=== PATIENT | male | born 1945 | race Caucasian/White ===

== ENCOUNTER 2025-01-27 11:40 | Emergency (ER) | payer OTHER ==
[~2025-01-27] VITALS: Ht 177.8 cm; Wt 80.0 kg
[2025-01-27 11:44] VITALS: O2SAT 99
[2025-01-27 12:16] LABS: BASOPHILS % 0.4 % (0.0-2.0); EOSINOPHILS % 0.0 % (0.0-5.0); HEMATOCRIT. 40.4 % (42.0-52.0); HEMOGLOBIN. 13.7 g/dL (14.0-18.0); LYMPHOCYTES % 14.4 % (20.0-50.0); MEAN PLATELET VOLUME 8.1 fl (7.4-10.4); MONOCYTES % 7.9 % (2.0-8.0); NEUTROPHILS % 77.3 % (40.0-76.0); PLATELET 173 x1000/uL (130-400); RED BLOOD CELL COUNT 4.27 mill/uL (4.7-6.1); RED CELL DISTRIBUTION WIDTH 13.7 % (11.6-14.6)
[2025-01-27 12:36] LABS: CREATININE 1.8 mg/dL (0.6-1.3); UREA NITROGEN BLOOD 23 mg/dL (9-23)
[2025-01-27 12:42] LABS: TROPONIN I HIGH SENSITIVITY 65 ng/L (3.0-53)
[2025-01-27] MEDS: SODIUM CHLORIDE 0.9% 1,000 ML IV ONE (13:03)
[2025-01-27] MEDS ORDERED: IPRATROPIUM/ALBUTEROL 0.5-3(2.5)MG/3ML NEB HHN PRN (14:30)
[2025-01-27] MEDS ORDERED: DOCUSATE SODIUM 100MG CAPSULE PO PRN (14:30)
[2025-01-27] MEDS ORDERED: ACETAMINOPHEN 325MG TABLET PO PRN ×2 (14:30)
[2025-01-27] MEDS ORDERED: CLONIDINE 0.1MG TABLET PO PRN (14:30)
[2025-01-27] MEDS ORDERED: ONDANSETRON HCL 4MG/2ML INJ IV PRN (14:30)
[2025-01-27 15:00] VITALS: BP 111/48; PULSE 69; RESP 10; TEMP 36.5; O2SAT 100
== END 2025-01-27 17:31 | disposition left against medical advice (07) ==
LOC: ER 11:40 → EDBEDREQ 14:08 → EDBEDREQTM 14:08 → CANBEDREQ 17:29 → ER 17:31
DX: I21.4 Non-ST elevation (NSTEMI) myocardial infarction (principal); Z86.73 Personal history of transient ischemic attack (TIA), and cerebral infarction without residual deficits; Z88.1 Allergy status to other antibiotic agents
CPT/HCPCS: 99285; 96360; 70450; 71045; 80048; 85025; 84484; 36415; 93005; J7030